=== PATIENT | male | born 1955 | race Hispanic/Latino ===

== ENCOUNTER 2023-08-07 08:18 | Emergency (ER) | payer OTHER, MEDICARE, MEDICAID ==
[~2023-08-07] VITALS: Ht 160 cm; Wt 90.9 kg
[~2023-08-07 08:18] MED LIST: HYDROCODON-ACE1 EA11 PO
--- OUTSIDE RECORDS SUMMARY | 2023-08-07 08:22 | XMS ---
PreManage Notification: [employer] Events No recent Security Events currently on file CRITERIA MET - [facility] - 2 Visits in 30 Days CARE PROVIDERS There are no care providers on record at this time. Teofilo has no Care Guidelines for this patient. [place] V[facility] (12 MO.) [facility] NOTE: Visits indicate total known visits. ED/C VISIT TRACKING (12 MO.) [facility] COMPLAINT: - LT ARM PAIN 07/27/2023 08:[address] [facility] TYPE: Emergency COMPLAINT: - LT ARM INJURY DIAGNOSES: - Activity, roller skating (inline) and skateboarding - Fall from skateboard, initial encounter - Pain in left elbow - Psoriasis, unspecified - Public park as the place of occurrence of the external cause - Unspecified fracture of lower end of left humerus, initial encounter for closed fracture INPATIENT VISIT TRACKING (12 MO.) No inpatient visits to display in this time frame [email or web address]
[2023-08-07] MEDS ORDERED: HYDROCODONE/ACETA 7.5/325 TAB PO ONE (08:45)
[2023-08-07] MEDS ORDERED: HYDROCODON-ACE1 EA10 PO (09:00)
[2023-08-07] MEDS ORDERED: IBU600 MG PO (09:12)
[2023-08-07 10:10] VITALS: BP 176/107
== END 2023-08-07 10:11 | disposition home or self-care (01) ==
LOC: ED 08:18
DX: S42.402A Unspecified fracture of lower end of left humerus, initial encounter for closed fracture (principal); V00.131A Fall from skateboard, initial encounter
CPT/HCPCS: 29105; 73060; 93971; 99284-25; A9270

== ENCOUNTER 2024-02-19 07:56 | Emergency (ER) | payer MEDICARE, MEDICAID ==
[~2024-02-19] VITALS: Ht 160 cm; Wt 88.8 kg
[~2024-02-19 07:56] MED LIST changes: +HYDROCODON-ACE1 EA10 PO; +IBU600 MG PO
[2024-02-19] MEDS ORDERED: KETOROLAC TROMETHAMINE 60 MG/2 ML VIAL IM ONE (08:15)
[2024-02-19] MEDS ORDERED: HYDROCODONE/ACETA 5/325 TAB PO ONE (08:15)
[2024-02-19] MEDS ORDERED: HYDROCODON-ACE1 EA10 PO (09:41)
[2024-02-19 09:53] VITALS: BP 151/95
== END 2024-02-19 09:53 | disposition home or self-care (01) ==
LOC: ED 07:56
DX: M25.511 Pain in right shoulder (principal); M19.011 Primary osteoarthritis, right shoulder
CPT/HCPCS: 73030; 96372; 99283; J1885

== ENCOUNTER 2024-06-30 18:40 | Emergency (ER) | payer OTHER, MEDICARE, MEDICAID ==
[~2024-06-30] VITALS: Ht 160 cm; Wt 100.0 kg
[2024-06-30] MEDS ORDERED: HYDROmorphone HCL 1 MG/ML SYR IV ONE (20:15)
[2024-06-30] MEDS ORDERED: OXYCODONE/ACETAMINOPHEN 1 TAB HOME.PACK PO ONE (21:45)
[2024-06-30] MEDS ORDERED: PERCOCET 5-3251 EACH PO (21:46)
[2024-06-30 22:53] VITALS: BP 162/110
--- NOTE | 2024-06-30 22:59 | EKG ---
[facility] [address] [facility] [place], [place] [address] Signed Normal sinus rhythm Nonspecific ST and T wave abnormality Abnormal ECG No previous ECGs available Confirmed by Berna Moreira MD () on 06/30/2024 10:59:07 PM Electronically Signed By: BERNA MOREIRA MD 06/30/24 2259 PATIENT NAME: LEYDACONOR L Electrocardiogram DATE OF : 55 PHYSICIAN: BERNA MOREIRA MD REPORT #: [id number] REPORT IS CONFIDENTIAL AND NOT TO BE RELEASED WITHOUT AUTHORIZATION
== END 2024-06-30 23:00 | disposition home or self-care (01) ==
LOC: ED 18:40
DX: S42.351A Displaced comminuted fracture of shaft of humerus, right arm, initial encounter for closed fracture (principal); V19.9XXA Pedal cyclist (driver) (passenger) injured in unspecified traffic accident, initial encounter
CPT/HCPCS: 36415; 73030; 84484; 93005; 93010; 96374; 99283-25; J1171